=== PATIENT | male | born 2000 | race Caucasian/White ===

== ENCOUNTER 2020-11-23 08:42 | Outpatient (CLI) | payer MEDICAID, SELFPAY ==
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
== END 2020-11-23 08:43 | disposition home or self-care (01) ==
PROVIDERS: PCP Family Medicine Adult Medicine; Visit Provider Family Medicine Adult Medicine
DX: S30.850A Superficial foreign body of lower back and pelvis, initial encounter (principal); W34.00XA Accidental discharge from unspecified firearms or gun, initial encounter; M41.85 Other forms of scoliosis, thoracolumbar region
CPT/HCPCS: 72128

== ENCOUNTER → 2020-12-28 14:10 | Outpatient (BNVA) | payer MEDICAID, SELFPAY | PROVIDERS: PCP Family Medicine Adult Medicine; Visit Provider Nurse Practitioner Family | DX: Z20.822 Contact with and (suspected) exposure to COVID-19 (principal) | CPT/HCPCS: 87635 ==

== ENCOUNTER → 2021-01-10 13:34 | Outpatient (BNVA) | payer MEDICAID, SELFPAY | PROVIDERS: PCP Family Medicine Adult Medicine; Referring Provider Family Medicine Adult Medicine; Visit Provider Orthopaedic Surgery | DX: S21.239A Puncture wound without foreign body of unspecified back wall of thorax without penetration into thoracic cavity, initial encounter (principal); W34.00XA Accidental discharge from unspecified firearms or gun, initial encounter; M41.84 Other forms of scoliosis, thoracic region | CPT/HCPCS: 72070; 72100 ==